=== PATIENT | male | born 1955 | race Two or more races ===

== ENCOUNTER 2021-01-04 15:45 | Emergency (ER) | payer SELFPAY ==
[~2021-01-04] VITALS: Ht 167.6 cm; Wt 86.2 kg
[2021-01-04] MEDS ORDERED: LIDOCAINE 1% HCL (LOCAL ANESTH.) INJ 20ML MDV ONE (16:41)
[2021-01-04] MEDS ORDERED: LIDOCAINE 1% HCL (LOCAL ANESTH.) INJ 20ML MDV ID ONE (17:00)
[2021-01-04 17:10] VITALS: BP 136/88
== END 2021-01-04 18:07 | disposition home or self-care (01) ==
LOC: ER 15:45 → EDBD 15:45 → ER 18:04
DX: S22.32XA Fracture of one rib, left side, initial encounter for closed fracture (principal); S01.81XA Laceration without foreign body of other part of head, initial encounter; S09.90XA Unspecified injury of head, initial encounter; W17.89XA Other fall from one level to another, initial encounter; Y93.89 Activity, other specified; Y92.89 Other specified places as the place of occurrence of the external cause; Y99.8 Other external cause status
CPT/HCPCS: 12014; 70450; 71250; 72125; 73030; 74176; 93005; 99285; J2001